=== PATIENT | male | born 1970 | race Caucasian/White ===

== ENCOUNTER → 2022-12-11 | Outpatient (CLI) | payer OTHER ==
[~2022-12-11] MED LIST: ADME100I SC; ATOR80TA59 PO; BASA100I SC; FLUTISP; GLIM4TAB5 PO; HYDR-3719 PO; INSU100I16 SC; LISI5TAB11 PO; LORA-674 PO; METF-838 PO; MONT10TA97 PO; VITA1CAP25 PO
== END ==
LOC: M LABSMTC 09:45
PROVIDERS: ATTEND Anesthesiology
DX: Z01.812 Encounter for preprocedural laboratory examination (principal)

== ENCOUNTER 2022-12-15 07:04 | Day surgery (SDC) | payer OTHER ==
[~2022-12-15] VITALS: Ht 177.8 cm; Wt 124.7 kg
[~2022-12-15 07:04] MED LIST changes: +NS 1,000 ML IV ONE
[2022-12-15] MEDS ORDERED: propofoL 200 MG/20 ML VIAL As Ordered ONE ×3 (07:55→09:08)
[2022-12-15] MEDS ORDERED: LIDOCAINE 2% 100MG/5ML SDV (FOR ANES.) As Ordered ONE (07:55)
[2022-12-15 10:54] VITALS: BP 147/86
== END 2022-12-15 10:57 | disposition home or self-care (01) ==
LOC: M OPP 07:04
PROVIDERS: ATTEND Internal Medicine Gastroenterology
DX: Z12.11 Encounter for screening for malignant neoplasm of colon (principal); Z80.0 Family history of malignant neoplasm of digestive organs; D12.6 Benign neoplasm of colon, unspecified; K64.8 Other hemorrhoids; I10 Essential (primary) hypertension; E78.5 Hyperlipidemia, unspecified; E11.9 Type 2 diabetes mellitus without complications; F17.210 Nicotine dependence, cigarettes, uncomplicated; Z88.0 Allergy status to penicillin; Z79.4 Long term (current) use of insulin; Z79.84 Long term (current) use of oral hypoglycemic drugs; Z79.899 Other long term (current) drug therapy; Z82.49 Family history of ischemic heart disease and other diseases of the circulatory system; Z80.8 Family history of malignant neoplasm of other organs or systems